=== PATIENT | female | born 1965 | race Caucasian/White ===

== ENCOUNTER → 2016-05-09 | Outpatient (CLI) | payer BC ==
[~2016-05-09] MED LIST: LOPRESSOR 550 MG/TAB PO; ZOLOFT 50MG50 MG PO
== END ==
LOC: MC.RAD 14:32
DX: Z12.31 Encounter for screening mammogram for malignant neoplasm of breast (principal)

== ENCOUNTER 2017-08-19 15:28 | Outpatient (RCR) | payer OTHER | END 2017-11-10 | disposition home or self-care (01) | LOC: WSOH | DX: M25.422 Effusion, left elbow (principal) ==

== ENCOUNTER → 2017-09-04 | Outpatient (CLI) | payer BC | LOC: COL.RAD 08:15 | DX: K76.0 Fatty (change of) liver, not elsewhere classified (principal) ==

== ENCOUNTER → 2017-10-14 | Outpatient (CLI) | payer BC | LOC: MC.RAD 10:05 | DX: Z12.31 Encounter for screening mammogram for malignant neoplasm of breast (principal) ==

== ENCOUNTER → 2019-01-24 | Outpatient (CLI) | payer BC | LOC: COL.RAD 12:01 | DX: M47.816 Spondylosis without myelopathy or radiculopathy, lumbar region (principal) ==